=== PATIENT | male | born 2000 | race Caucasian/White ===

== ENCOUNTER 2018-10-30 10:14 | Outpatient (CLI) | payer BC, OTHER ==
--- NOTE | 2018-10-30 13:29 | MRI ---
MR OF THE LEFT KNEE WITHOUT CONTRAST INDICATION: Anterior left knee pain after injury while playing football TECHNIQUE: Axial and coronal PD fat sat, sagittal T2 fat sat, sagittal PD turbo spin echo and T1 den nal images were obtained of the left knee. COMPARISON: None. FINDINGS: Joint effusion: None. Semimembranosus-medial gastrocnemius popliteal cyst: None. Ligaments: The ACL, PCL, MCL and LCLC are intact. Extensor mechanism: Intact. Menisci: Intact. Articular cartilage: Intact. Osseous structures: There are contusions involving the anterior aspect of the tibial plateau and the medial and lateral femoral condyle. There is subcutaneous contusion involving the anterior aspect of the right knee. Popliteus and IT band: Normal. IMPRESSION: 1. Bone marrow contusions involving the anterior distal femur and proximal tibial plateau. 2. The menisci are intact. 3. The ligaments are intact.
== END 2018-10-30 10:15 | disposition home or self-care (01) ==
LOC: SCSMRI 10:14
PROVIDERS: ATTEND Orthopaedic Surgery
DX: M25.562 Pain in left knee (principal); S70.12XA Contusion of left thigh, initial encounter